=== PATIENT | female | born 1995 ===

== ENCOUNTER → 2024-01-30 08:25 | Outpatient (REF) | payer OTHER, SELFPAY | LOC: HWRAD 08:25 | PROVIDERS: ATTENDING PHYSICIAN Family Medicine | DX: R51.9 Headache, unspecified (principal) | CPT/HCPCS: 70450 ==

== ENCOUNTER → 2024-10-31 10:15 | Outpatient (REF) | payer BC, SELFPAY | LOC: HWRCS 10:15 | PROVIDERS: ATTENDING PHYSICIAN Internal Medicine Cardiovascular Disease; FAMILY PHYSICIAN Family Medicine | DX: I34.1 Nonrheumatic mitral (valve) prolapse (principal); R07.9 Chest pain, unspecified | CPT/HCPCS: 93306 ==

== ENCOUNTER → 2025-06-12 10:36 | Outpatient (REF) | payer OTHER, SELFPAY | LOC: RAD 10:36 | PROVIDERS: ATTENDING PHYSICIAN Nurse Practitioner Family; FAMILY PHYSICIAN Family Medicine | DX: M79.672 Pain in left foot (principal) | CPT/HCPCS: 73630 ==